=== PATIENT | female | born 1965 ===

== ENCOUNTER 2024-03-02 12:32 | Outpatient (CLI) | payer OTHER | END 2024-03-02 12:35 | disposition home or self-care (01) | LOC: EKG 12:32 | PROVIDERS: ATTEND Internal Medicine | DX: I10 Essential (primary) hypertension (principal) ==

== ENCOUNTER 2024-03-12 06:41 | Day surgery (SDC) | payer OTHER ==
[2024-03-12] MEDS ORDERED: CEFAZOLIN SODIUM 1,000 MG VIAL IV ONE (12:30)
[2024-03-12] MEDS ORDERED: DOXYCYCLINE HY100 M2 PO (13:54)
[2024-03-12] MEDS ORDERED: NASAL MIST126 ML NASAL (13:54)
== END 2024-03-12 16:30 | disposition home or self-care (01) ==
LOC: CIR.AMB 06:41
PROVIDERS: ATTEND Obstetrics & Gynecology
DX: N84.0 Polyp of corpus uteri (principal); Z91.041 Radiographic dye allergy status; Z91.013 Allergy to seafood